=== PATIENT | female | born 1980 | race Caucasian/White ===

== ENCOUNTER 2017-02-12 17:31 | Emergency (ER) | payer OTHER ==
[2017-02-12 17:55] VITALS: BP 127/74
[2017-02-12] MEDS ORDERED: Diphtheria,Pertussis(Acell),Tetanus Vaccine 0.5 ML Syringe IM ONE (18:09)
--- NOTE | 2017-02-12 18:14 | EDM.PDOC ---
ED HPI GENERAL MEDICAL PROBLEM - General Chief Complaint: Skin Complaint Stated Complaint: POKE WITH TOOTHPICK/BACK RT THIGH Time Seen by Provider: 02/12/17 17:59 - History of Present Illness INITIAL COMMENTS - FREE TEXT/NARRATIVE: HISTORY AND PHYSICAL: History of present illness: The patient is a 36-year-old healthy female who follows with our clinic providers, Dr. Carter, and who presents after sustaining a puncture wound by a toothpick today at her posterior right thigh. Patient is unsure of her last tetanus shot and believes it was in 2007 and presents after sitting on a chair where toothpick was placed by an inmate. She immediately felt the puncture and there was no retained foreign body in there was minimal bleeding. She has no tenderness swelling or redness at the site but contacted her physician who sent her to the ER to have needlestick labs performed. Patient cleanse the area prior to coming here. She has no other injuries. Patient is unsure of who may have placed this so the source is unknown. Review of systems: As per history of present illness and below otherwise all systems reviewed and negative. Past medical history: As per history of present illness and as reviewed below otherwise noncontributory. Surgical history: As per history of present illness and as reviewed below otherwise noncontributory. Social history: No reported history of drug or alcohol abuse. Family history: As per history of present illness and as reviewed below otherwise noncontributory. Physical exam: Gen.: Well-developed well-nourished female who is nontoxic and speaking fairly easily in the ED. Vital signs of the note by me. HEENT: Atraumatic, normocephalic, negative for conjunctival pallor or scleral icterus, mucous membranes moist, throat clear, neck supple, nontender, trachea midline. Lungs: Clear to auscultation, breath sounds equal bilaterally, chest nontender. Heart: S1S2, regular rate and rhythm no overt murmurs Abdomen: Soft, nondistended, nontender. NABS Pelvis: Deferred Genitourinary: Deferred. Rectal: Deferred. Extremities: Atraumatic except posterior right thigh please see below, and there is no soft tissue swelling or tenderness erythema or warmth at the posterior right thigh, negative for cords or calf pain. Neurovascular unremarkable. Neuro: Awake, alert, oriented. Cranial nerves II through XII unremarkable. Cerebellum unremarkable. Motor and sensory unremarkable throughout. Exam nonfocal. Skin: Normal turgor no evidence of any rashes or lesions. At the posterior medial right thigh there is a small dot indicative of the puncture site which has no active bleeding erythema warmth drainage fluctuance or swelling. There is no ecchymosis in this area. The compartment is soft Diagnostics: Patient states that Dr. Carter recommended needlestick labs which include hepatitis C AB, hepatitis B surface AB Quant HIV 12AG Therapeutics: Tdap I discussed with the patient that we send these labs off and she would like to follow-up the results with Dr. Carter. We'll place her on some prophylactic Keflex although the wound is small just to be cautious. Advised on reasons to return to the ED. Impression: Puncture wound to right thigh Definitive disposition and diagnosis as appropriate pending reevaluation and review of above. right post thigh Pain Score (Numeric/FACES): 1 - Related Data Allergies Allergy/AdvReac Type Severity Reaction Status Date / Time No Known Allergies Allergy Verified 02/12/17 17:46 Home Meds: Home Meds Albuterol Sulfate [Proair Hfa] 8.5 gm IH ASDIRECTED PRN 03/08/16 [History] Fluticasone Propionate [Flovent HFA 44 MCG] 1 puff PO BID 03/08/16 [History] Past Medical History - Past Health History Medical/Surgical History: Denies Medical/Surgical History Respiratory History: Reports: Asthma [employer] History: Reports: Other (See Below) Other OB/BYN History: IVF - Infectious Disease History Infectious Disease History: Reports: Chicken Pox, Shingles - Past Surgical History HEENT Surgical History: Reports: Oral Surgery Social & Family History - Family History Family Medical History: Noncontributory - Tobacco Use Smoking Status *Q: Never Smoker - Caffeine Use Caffeine Use: Reports: Coffee, Energy Drinks, Soda, Tea Caffeine Use Comment: 2 drinks/day - Recreational Drug Use Recreational Drug Use: No ED ROS GENERAL - Review of Systems Review Of Systems: ROS reveals no pertinent complaints other than HPI. ED EXAM, SKIN/RASH Exam: See Below (See dictation) Course - Vital Signs Last Recorded V/S: Last Vital Signs Temp 36.2 C 02/12/17 17:31 Pulse 69 02/12/17 17:31 Resp 18 02/12/17 17:31 BP 127/74 02/12/17 17:31 Pulse Ox 97 02/12/17 17:31 - Orders/Labs/Meds Orders: Active Orders 24 hr Category Date Time Status Vaccines to be Administered [RC] PER UNIT ROUTINE Care 02/12/17 18:09 Ordered HEP B SURFACE AB,QNT [REF] Stat Lab 02/12/17 18:07 Ordered HEPATITIS C AB [REF] Stat Lab 02/12/17 18:07 Ordered HIV12 AG/AB 4TH GEN W/REFLEX [CHEM] Stat Lab 02/12/17 18:07 Ordered Diphth,Pertuss(Acell),Tet Vac [Adacel] Med 02/12/17 18:09 Once 0.5 ml IM .ONCE ONE Medication Orders Diphtheria/Tetanus/Acell Pertussis (Adacel) 0.5 ml IM .ONCE ONE Stop: 02/12/17 18:10 Meds: Medications Generic Name Dose Route Start Last Admin Trade Name Freq PRN Reason Stop Dose Admin Diphtheria/Tetanus/Acell Pertussis 0.5 ml 02/12/17 18:09 Adacel IM 02/12/17 18:10 .ONCE ONE Departure - Departure Time of Disposition: 18:13 Disposition: Home, Self-Care 01 Condition: Good Clinical Impression: Puncture wound of right thigh Qualifiers: Encounter type: initial encounter Qualified Code(s): S71.131A - Puncture wound without foreign body, right thigh, initial encounter - Discharge Information Referrals: Saul Carter MD [Primary Care Provider] - Additional Instructions: The following information is given to patients seen in the emergency department who are being discharged to home. This information is to outline your options for follow-up care. We provide all patients seen in our emergency department with a follow-up referral. The need for follow-up, as well as the timing and circumstances, are variable depending upon the specifics of your emergency department visit. If you don't have a primary care physician on staff, we will provide you with a referral. We always advise you to contact your personal physician following an emergency department visit to inform them of the circumstance of the visit and for follow-up with them and/or the need for any referrals to a consulting specialist. The emergency department will also refer you to a specialist when appropriate. This referral assures that you have the opportunity for followup care with a specialist. All of these measure are taken in an effort to provide you with optimal care, which includes your followup. Under all circumstances we always encourage you to contact your private physician who remains a resource for coordinating your care. When calling for followup care, please make the office aware that this follow-up is from your recent emergency room visit. If for any reason you are refused follow-up, please contact the [facility] emergency department at and ask to speak to the emergency department charge nurse. [facility] Primary care- Internal Medicine and Family [address] Carter and follow-up to get your test results and take antibiotics as prescribed. Keep area clean and dry as we discussed and return to ER as needed and as discussed. - My Orders Last 24 Hours: My Active Orders 02/12/17 18:07 HEP B SURFACE AB,QNT [REF] Stat HEPATITIS C AB [REF] Stat HIV12 AG/AB 4TH GEN W/REFLEX [CHEM] Stat 02/12/17 18:09 Vaccines to be Administered [RC] PER UNIT ROUTINE Diphth,Pertuss(Acell),Tet Vac [Adacel] 0.5 ml IM .ONCE ONE - Assessment/Plan Last 24 Hours: My Active Orders 02/12/17 18:07 HEP B SURFACE AB,QNT [REF] Stat HEPATITIS C AB [REF] Stat HIV12 AG/AB 4TH GEN W/REFLEX [CHEM] Stat 02/12/17 18:09 Vaccines to be Administered [RC] PER UNIT ROUTINE Diphth,Pertuss(Acell),Tet Vac [Adacel] 0.5 ml IM .ONCE ONE
== END 2017-02-12 18:28 | disposition home or self-care (01) ==
LOC: MW.ED 17:31
DX: S71.131A Puncture wound without foreign body, right thigh, initial encounter (principal); Z23 Encounter for immunization; J45.909 Unspecified asthma, uncomplicated; X58.XXXA Exposure to other specified factors, initial encounter
CPT/HCPCS: 36415; 86706; 86803; 87389; 90471; 90715; 99283; 99283-25

== ENCOUNTER 2022-12-08 20:57 | Emergency (ER) | payer OTHER ==
[2022-12-08] MEDS ORDERED: Lidocaine 1% PF 2 ML SDV INJECT ONE (21:32)
[2022-12-08] MEDS ORDERED: Diphtheria,Pertussis(Acell),Tetanus Vaccine 0.5 ML Syringe IM ONE (21:32)
[2022-12-08 22:51] VITALS: BP 108/60; PULSE 62
== END 2022-12-08 22:50 | disposition home or self-care (01) ==
LOC: MW.ED 20:57
DX: S61.216A Laceration without foreign body of right little finger without damage to nail, initial encounter (principal); J45.909 Unspecified asthma, uncomplicated; Z23 Encounter for immunization; W26.0XXA Contact with knife, initial encounter
CPT/HCPCS: 12001; 90471; 90715; 99282-25; 99283; J3490